=== PATIENT | female | born 1945 | race Caucasian/White ===

== ENCOUNTER 2019-05-18 14:02 | Outpatient (CLI) | payer MEDICARE, OTHER ==
--- NOTE | 2019-05-18 15:47 | XRAY Report ---
Reason: POLYOSTEOARTHRITIS,UNSPECIFIED,PAIN IN RIGHT SHOUL Procedure Date: 05/18/2019 Accession Number: [id number] / [id number] Procedure: XRS - Shoulder 3 View RT CPT Code: FULL RESULT: EXAM: RIGHT SHOULDER RADIOGRAPHY EXAM DATE: 05/18/2019 02:32 PM. CLINICAL HISTORY: Polyosteoarthritis, unspecified, pain in right shoulder. COMPARISON: None. TECHNIQUE: 3 views. FINDINGS: Bones: Normal. No fracture or bone lesion. Joints: There is mild degenerative change of the acromioclavicular joint. Both the AC joint and glenohumeral articulation are appropriately located. Soft tissues: The visualized hemithorax is unremarkable. No soft tissue swelling. IMPRESSION: Mild AC joint degenerative changes. RADIA
--- NOTE | 2019-05-18 15:49 | XRAY Report ---
Reason: POLYOSTEOARTHRITIS,UNSPECIFIED,PAIN IN RIGHT SHOUL Procedure Date: 05/18/2019 Accession Number: [id number] / [id number] Procedure: XRS - Hand 3 View RT CPT Code: FULL RESULT: EXAM: RIGHT HAND RADIOGRAPHY EXAM DATE: 05/18/2019 02:32 PM. CLINICAL HISTORY: Polyosteoarthritis, unspecified, pain in right shoulder. COMPARISON: None. TECHNIQUE: 3 views. FINDINGS: There is joint space loss with bony proliferation, periarticular osteopenia and erosion, most pronounced in the distal second interphalangeal articulation as well as the proximal fourth interphalangeal articulation where there is subluxation related to the process. Associated periarticular soft tissue calcifications are seen. Other joints are relatively spared. No acute fracture. Prior trapezium resection. IMPRESSION: The appearance is most compatible with erosive arthritis, not osteoarthrosis alone. RADIA
--- NOTE | 2019-05-18 15:52 | XRAY Report ---
Reason: POLYOSTEOARTHRITIS,UNSPECIFIED,PAIN IN RIGHT SHOUL Procedure Date: 05/18/2019 Accession Number: [id number] / [id number] Procedure: XRS - Hand 3 View LT CPT Code: FULL RESULT: EXAM: LEFT HAND RADIOGRAPHY. EXAM DATE: 05/18/2019 02:32 PM. CLINICAL HISTORY: Polyosteoarthritis, unspecified, pain in right shoulder. COMPARISON: HAND 3 VIEW RT 05/18/2019 2:28 PM. TECHNIQUE: 3 views. FINDINGS: Interphalangeal joint predominant joint space narrowing which is most pronounced in the third distal interphalangeal joint and fourth proximal interphalangeal joint region with periarticular osteopenia, osteophyte formation and a mild amount of osseous destruction, most compatible with erosive arthritis. Prior trapezium resection. No fracture or dislocation. IMPRESSION: Erosive osteoarthritis. RADIA
== END 2019-05-18 14:03 | disposition home or self-care (01) ==
LOC: DI.S 14:02
PROVIDERS: ATTEND Physician Assistant
DX: M19.011 Primary osteoarthritis, right shoulder (principal); M19.042 Primary osteoarthritis, left hand; M19.041 Primary osteoarthritis, right hand

== ENCOUNTER 2019-09-29 14:22 | Outpatient (CLI) | payer MEDICARE, OTHER ==
--- NOTE | 2019-09-30 13:00 | XRAY Report ---
Reason: CERVICALGIA Procedure Date: 09/29/2019 Accession Number: [id number] / [id number] Procedure: XRS - Thoracic Spine 2 View CPT Code: Final Report FULL RESULT: EXAM: THORACIC SPINE RADIOGRAPHY EXAM DATE: 09/29/2019 03:47 PM. CLINICAL HISTORY: Fall, pain. COMPARISON: None. TECHNIQUE: 2 views. FINDINGS: Alignment: Minimal scoliosis. No listhesis. Bones: Slight anterior narrowing of about T5, most likely old. No definite acute fracture or other bone lesion. Disks: Minimal generalized disk space narrowing. Soft Tissues: Bibasilar atelectasis. Normal heart size. IMPRESSION: Minimal scoliosis with associated chronic findings. No definite acute disease. RADIA
--- NOTE | 2019-09-30 13:00 | XRAY Report ---
Reason: RIB PX, PLEURODYNIA, L SHOULDER, CERVICALGIA Procedure Date: 09/29/2019 Accession Number: [id number] / [id number] Procedure: XRS - Shoulder 3 View LT CPT Code: Final Report FULL RESULT: EXAM: LEFT SHOULDER RADIOGRAPHY EXAM DATE: 09/29/2019 03:47 PM. CLINICAL HISTORY: RIB PX, PLEURODYNIA, L SHOULDER, CERVICALGIA. Patient reports left shoulder surgery 09/20/2019. Fall on 09/22/2019 with left shoulder pain. COMPARISON: SHOULDER 3 VIEW RT 09/29/2019 3:44 PM. TECHNIQUE: 3 views. FINDINGS: Bones: Normal. No fracture or bone lesion. Joints: The glenohumeral and acromioclavicular joints are normal. Soft tissues: The visualized hemithorax is unremarkable. There are surgical clips in the left supraclavicular region. IMPRESSION: Normal left shoulder radiography. RADIA
--- NOTE | 2019-09-30 13:06 | XRAY Report ---
Reason: CERVALGIA Procedure Date: 09/29/2019 Accession Number: [id number] / [id number] Procedure: XRS - Cervical Spine 2 View CPT Code: Final Report FULL RESULT: EXAM: CERVICAL SPINE RADIOGRAPHY EXAM DATE: 09/29/2019 03:47 PM. CLINICAL HISTORY: Fall, pain. COMPARISONS: None. TECHNIQUE: 3 views. FINDINGS: Alignment: Straightening of cervical lordosis with slight reversal of curve at T5. Minimal stairstepping from C2-C4. No significant listhesis. Minimal scoliosis. Bones: The cervical vertebral bodies and posterior elements are well visualized from the skull base through C7-T1. No fractures or bone lesions. Disks: Marked disk space narrowing at C5-C6 and C6-C7. Facets: Prominent generalized degenerative changes, left worse than right. Soft Tissues: Surgical clips overlie left clavicle and base of neck. No prevertebral soft tissue swelling. The visualized lung apices are clear. IMPRESSION: Degenerative and associated chronic findings. No acute disease. RADIA
--- NOTE | 2019-09-30 13:09 | XRAY Report ---
Reason: RIB PX, PLEURODYNIA, L SHOULDER, CERVICALGIA Procedure Date: 09/29/2019 Accession Number: [id number] / [id number] Procedure: XRS - Chest 2 View X-Ray CPT Code: 11817 Final Report FULL RESULT: EXAM: CHEST RADIOGRAPHY EXAM DATE: 09/29/2019 03:47 PM. CLINICAL HISTORY: RIB PX, PLEURODYNIA, L SHOULDER, CERVICALGIA. COMPARISON: SHOULDER 3 VIEW RT 05/18/2019 2:35 PM SHOULDER 3 VIEW LT 09/29/2019 3:59 PM SHOULDER 3 VIEW RT 09/29/2019 3:44 PM THORACIC SPINE 2 VIEW 09/29/2019 3:26 PM RIBS BILAT W/CHEST 4 VIEW 09/29/2019 3:[address] CHEST W CONTRAST 09/22/2019 8:35 PM. TECHNIQUE: 2 views. FINDINGS: Lungs/Pleura: Mild right hemidiaphragm elevation. Bandlike atelectasis or scarring at right greater than left lung bases. Mid upper lungs are clear. No interstitial abnormality. No pneumothorax or pleural effusion. Mediastinum: Heart and mediastinal contours are unremarkable. Other: Bones are grossly unremarkable. Surgical clips in the left supraclavicular region. IMPRESSION: 1. Mild right hemidiaphragm elevation, as before. 2. Mild bandlike opacities at right greater than left lung base is similar to before suggesting atelectasis. 3. No pneumothorax. No pleural effusion. RADIA
--- NOTE | 2019-09-30 13:13 | XRAY Report ---
Reason: PAIN IN LEFT SHOULDER, PLEURODYNA Procedure Date: 09/29/2019 Accession Number: [id number] / [id number] Procedure: XRS - Ribs Bilat w/Chest 4 View CPT Code: Addended Final Report FULL RESULT: EXAM: BILATERAL RIB RADIOGRAPHY EXAM DATE: 09/29/2019 03:47 PM. CLINICAL HISTORY: Pain in left shoulder, pleurodynia. Patient had left shoulder surgery on September 20, 2019. Had severe fall on September 22, 2019 with right lower anterior rib pain. COMPARISON: CHEST 2 VIEW 09/29/2019 3:[address] CHEST W CONTRAST 09/22/2019 8:35 PM. TECHNIQUE: 1 view of the chest and 1 view right ribs and one view left ribs. FINDINGS: Bones: Evidence of fractures of the left seventh, eighth, ninth, tenth and eleventh ribs, without significant displacement. Lungs: Compared with the CT exam from the previous day, right hemidiaphragm elevation and prominent bandlike right basilar density compatible with atelectasis are without significant change. Mild left basilar probable atelectasis appears similar to mildly increased. No gee pleural effusion. No pneumothorax. Mediastinum: Heart and mediastinal contours are unremarkable. Other: Left supraclavicular surgical clips redemonstrated. IMPRESSION: 1. Fractures of the left seventh through eleventh ribs, without significant displacement. 2. Right hemidiaphragm elevation and right basilar probable atelectasis, without gee change. Mild left basilar probable atelectasis, similar to mildly increased. RADIA ADDENDUM: 09/30/19 15:35 Correction : Bones: Evidence of fractures of the *right* seventh, eighth, ninth, tenth and eleventh ribs, without significant displacement. IMPRESSION: 1. Fractures of the *right* seventh through eleventh ribs, without significant displacement.
--- NOTE | 2019-09-30 13:15 | XRAY Report ---
Reason: RIGHT SHOULDER PAIN Procedure Date: 09/29/2019 Accession Number: [id number] / [id number] Procedure: XRS - Shoulder 3 View RT CPT Code: Final Report FULL RESULT: EXAM: RIGHT SHOULDER RADIOGRAPHY EXAM DATE: 09/29/2019 03:47 PM. CLINICAL HISTORY: RIGHT SHOULDER PAIN. COMPARISON: THORACIC SPINE 2 VIEW 09/29/2019 3:26 PM. TECHNIQUE: 4 views. FINDINGS: Bones: No fracture or bone lesion is identified about the shoulder. Minimally displaced right posterior seventh through 10th rib fractures are noted on the transscapular Y view. Joints: The glenohumeral and acromioclavicular joints are normal. Soft tissues: The visualized hemithorax is unremarkable. No soft tissue swelling. IMPRESSION: 1. No fracture or malalignment is identified at the right shoulder. 2. Minimally displaced right posterior seventh through 10th rib fractures. RADIA
== END 2019-09-29 14:23 | disposition home or self-care (01) ==
LOC: DI.S 14:22
PROVIDERS: ATTEND Nurse Practitioner Family
DX: S22.41XA Multiple fractures of ribs, right side, initial encounter for closed fracture (principal); M25.512 Pain in left shoulder; M51.34 Other intervertebral disc degeneration, thoracic region; M47.812 Spondylosis without myelopathy or radiculopathy, cervical region; M50.322 Other cervical disc degeneration at C5-C6 level; R91.8 Other nonspecific abnormal finding of lung field
CPT/HCPCS: 71046; 71111; 72040; 72070

== ENCOUNTER 2019-12-03 08:42 | Outpatient (CLI) | payer MEDICARE, OTHER ==
[2019-12-03 18:47] LABS: ALBUMIN 4.1 g/dL (3.2-5.5); ALBUMIN/GLOBULIN RATIO 1.5 (1.0-2.2); ALKALINE PHOSPHATASE 100 IU/L (42-121); ALT ALANINE AMINOTRANSFERASE 18 IU/L (10-60); AST ASPARTATE AMINOTRANSFERASE 21 IU/L (10-42); BILIRUBIN,TOTAL 0.8 mg/dL (0.2-1.0); BUN - BLOOD UREA NITROGEN 21 mg/dL (6-20); CALCIUM 9.3 mg/dL (8.5-10.3); CARBON DIOXIDE - CO2 27 mmol/L (21-32); CHLORIDE 108 mmol/L (101-111); CHOL/HDL RATIO 2.2 (<4.4); CHOLESTEROL 146 mg/dL; CREATININE 0.8 mg/dL (0.4-1.0); GFR - MDRD 70 (>89); GLUCOSE 90 mg/dL (70-100); HDL CHOLESTEROL 65 mg/dL; LDL CHOLESTEROL,CALCULATED 60 mg/dL; LDL/HDL RATIO 0.9 (<4.4); SODIUM 141 mmol/L (135-145); TOTAL PROTEIN 6.8 g/dL (6.7-8.2); VLDL CHOLESTEROL 21 mg/dL
== END 2019-12-03 08:43 | disposition home or self-care (01) ==
LOC: LAB.S 08:42
PROVIDERS: ATTEND Physician Assistant
DX: R79.89 Other specified abnormal findings of blood chemistry (principal); E78.2 Mixed hyperlipidemia
CPT/HCPCS: 36415; 80053; 80061; 83721

== ENCOUNTER 2021-02-09 16:52 | Outpatient (CLI) | payer MEDICARE, OTHER | END 2021-02-09 16:53 | disposition home or self-care (01) | LOC: COV 16:52 | PROVIDERS: ATTEND Internal Medicine Critical Care Medicine | DX: Z01.812 Encounter for preprocedural laboratory examination (principal); Z20.822 Contact with and (suspected) exposure to COVID-19 ==

== ENCOUNTER 2021-02-20 13:00 | Outpatient (CLI) | payer MEDICARE, OTHER ==
--- NOTE | 2021-02-21 13:24 | Mammography Report ---
BILATERAL DIGITAL SCREENING MAMMOGRAM 3D/2D: 02/20/2021 CLINICAL: Routine screening. Routine screening. Comparison is made to exams dated: 01/16/2018 mammogram, 01/03/2017 mammogram, and 11/01/2015 mammogram - [facility]. There are scattered fibroglandular elements in both breasts. No significant masses, calcifications, or other findings are seen in either breast. There has been no significant interval change. IMPRESSION: NEGATIVE There is no mammographic evidence of malignancy. A 1 year screening mammogram is recommended. This exam was interpreted at Station ID: [id number]. NOTE: For mammograms, a report in lay terms will be sent to the patient. Approximately 15% of breast malignancies will not be visualized mammographically. In the management of a palpable breast mass, a negative mammogram must not discourage biopsy of a clinically suspicious lesion. Electronically Signed By: Lemuel Marquez M.D. ar/jose raulrad:02/20/2021 13:48:33 ACR BI-RADS Category 1: Negative 3341F PARENCHYMAL PATTERN: (A) - The breast(s) demonstrate(s) scattered fibroglandular densities. BI-RADS CATEGORY: (1) - 1 RECOMMENDATION: (ANNUAL) - Recommend routine annual screening mammography. [id number] 1 year screening LATERALITY: (B)
== END 2021-02-20 13:01 | disposition home or self-care (01) ==
LOC: DI.S 13:00
PROVIDERS: ATTEND Nurse Practitioner Family
DX: Z12.31 Encounter for screening mammogram for malignant neoplasm of breast (principal)

== ENCOUNTER 2021-06-07 20:22 | Outpatient (CLI) | payer MEDICARE, OTHER | END 2021-06-07 20:23 | disposition short-term general hospital (02) | LOC: EMS 20:22 | DX: Z04.3 Encounter for examination and observation following other accident (principal); M79.621 Pain in right upper arm | CPT/HCPCS: A0425; A0427 ==

== ENCOUNTER 2023-07-16 11:45 | Outpatient (CLI) | payer MEDICARE, OTHER ==
[2023-07-16 12:07] LABS: BASOPHILS % (AUTO) 0.7 %; EOSINOPHILS # (AUTO) 0.4 10^3/uL (0.0-0.7); EOSINOPHILS % (AUTO) 6.7 %; HCT - HEMATOCRIT 40.8 % (37.0-47.0); LYMPHOCYTES # (AUTO) 1.8 10^3/uL (1.5-3.5); LYMPHOCYTES % (AUTO) 32.4 %; MEAN CORPUSCULAR HEMOGLOBIN 33.1 pg (27.0-31.0); MEAN CORPUSCULAR HGB CONC 31.9 g/dL (32.0-36.0); MEAN CORPUSCULAR VOLUME 103.8 fL (81.0-99.0); MEAN PLATELET VOLUME 11.7 fL (7.9-10.8); MONOCYTES # (AUTO) 0.3 10^3/uL (0.0-1.0); NEUTROPHILS # (AUTO) 3.1 10^3/uL (1.5-6.6); PLT - PLATELET COUNT 185 10^3/uL (130-450); RED BLOOD COUNT 3.93 10^6/uL (4.20-5.40); RED CELL DISTRIBUTION WIDTH 12.6 % (12.0-15.0); WHITE BLOOD COUNT 5.7 x10^3/uL (4.8-10.8)
[2023-07-16 12:18] LABS: INR 0.9 (0.8-1.2); PT - PROTHROMBIN TIME 10.2 secs (9.9-12.6)
[2023-07-16 12:26] LABS: PARTIAL THROMBOPLASTIN TIME 36.8 secs (24.9-33.3)
[2023-07-16 13:09] LABS: ALBUMIN 4.7 g/dL (3.2-5.5); ALBUMIN/GLOBULIN RATIO 1.8 (1.0-2.2); BILIRUBIN,TOTAL 0.7 mg/dL (0.2-1.0); CALCIUM 10.3 mg/dL (8.5-10.3); CREATININE 1.2 mg/dL (0.6-1.3); POTASSIUM 4.7 mmol/L (3.5-4.5); TOTAL PROTEIN 7.3 g/dL (6.4-8.9)
== END 2023-07-16 11:46 | disposition home or self-care (01) ==
LOC: DI 11:45 → LAB 11:46
PROVIDERS: ATTEND Registered Nurse
DX: Z13.89 Encounter for screening for other disorder (principal)
CPT/HCPCS: 36415; 80053; 85025; 85610; 85730